=== PATIENT | male | born 1990 | race Caucasian/White ===

== ENCOUNTER 2017-06-01 00:30 | Emergency (ER) | payer MEDICAID ==
[2017-06-01] MEDS ORDERED: SODIUM CHLORIDE 0.9% 1,000 ML IV ONE (00:40)
[2017-06-01] MEDS ORDERED: diphenhydrAMINE INJ 50 MG/ML VIAL IVP STA (00:40)
[2017-06-01] MEDS ORDERED: KETOROLAC 60 MG/2 ML VIAL IVP STA (00:40)
[2017-06-01] MEDS ORDERED: METOCLOPRAMIDE 10 MG/2 ML VIAL IVP STA (00:40)
--- NOTE | 2017-06-01 00:43 | ED Physician Documentation ---
PD HPI HEADACHE - Stated complaint Stated Complaint: HEADACHE - Chief complaint Chief Complaint: Neuro - History obtained from History obtained from: Patient - History of Present Illness Timing - onset: How many days ago (4) Timing - onset during: Rest Timing - details: Gradual onset, Intermittant Location: Left Quality: Aching Associated symptoms: Eye pain. No: Fever, Stiff neck, Nausea, Vomiting Improved by: Rest, Dark room Worsened by: Light Similar symptoms before: Work up / diagnostics Recently seen: Not recently seen - Additional information Additional information: Patient is a 27 year old male with a history of migraines who is presenting to the emergency department for headache. Patient states that he has had intermittent headaches for the last 4 days. Patient states they are just on his left side behind his eye. Patient reports that he has a history of migraines but has not had them in a few years. Patient does report that there is at home and he has not been sleeping well. Review of Systems Constitutional: denies: Fever, Chills Eyes: reports: Photophobia. denies: Decreased vision Ears: denies: Ear pain, Drainage/discharge Nose: denies: Congestion Throat: denies: Dental pain / toothache, Sore throat Cardiac: denies: Chest pain / pressure, Palpitations Respiratory: denies: Dyspnea, Cough, Wheezing GI: denies: Abdominal Pain, Nausea, Vomiting : reports: Reviewed and negative Skin: denies: Rash, Lesions Musculoskeletal: denies: Neck pain, Back pain, Extremity pain Neurologic: reports: Headache. denies: Generalized weakness, Focal weakness, Head injury, LOC Immunocompromised: denies: Immunocompromised PD PAST MEDICAL HISTORY - Present Medications Home Medications: Ambulatory Orders Medication Instructions Recorded Confirmed Butalb/Acetaminophen/Caffeine 1 each PO TID #10 capsule 06/01/17 [Fioricet 50-300-40 mg Capsule] - Allergies Allergies/Adverse Reactions: Allergies Allergy/AdvReac Type Severity Reaction Status Date / Time No Known Drug Allergies Allergy Verified 06/01/17 00:40 PD ED PE NORMAL - Vitals Vital signs reviewed: Yes - General General: Alert and oriented X 3, No acute distress, Well developed/nourished - HEENT HEENT: Atraumatic, PERRL, Moist mucous membranes, Pharynx benign - Neck Neck: Supple, no meningeal sign, No JVD - Cardiac Cardiac: RRR, No murmur - Respiratory Respiratory: No respiratory distress - Abdomen Abdomen: Soft, Non tender, Non distended - Derm Derm: Normal color, Warm and dry, No rash - Extremities Extremities: No deformity, Normal ROM s pain, No calf tenderness / cord - Neuro Neuro: Alert and oriented X 3, signaler 2-12 intact, No motor deficit, No sensory deficit, Normal speech Eye Opening: Spontaneous Motor: Obeys Commands Verbal: Oriented GCS Score: 15 Results - Vitals Vitals: Vital Signs - 24 hr 06/01/17 00:35 Temperature 36.5 C Heart Rate 67 Respiratory 16 Rate Blood Pressure 154/110 H O2 Saturation 98 Oxygen O2 Source Room air Oxygen Flow Rate 2 PD MEDICAL DECISION MAKING - ED course Complexity details: reviewed old records, reviewed results, re-evaluated patient , considered differential, d/w patient ED course: Patient was seen and examined at bedside. Patietn was Patient was seen and examined at bedside. patient was well appearing with no focal deficits. Patient was treated with iv fluids, toradol, reglan, bendadryl and supplemental O2. Patient was able to rest comfortably. patient's original blood pressure was an outlier as all the other were within normal limits. While serious etiology of the patient's headache were considered they were unlikely. Patient required no further inpatient work up and was stable for discharge with outpatient follow up. Departure - Departure Disposition: 01 Home, Self Care Clinical Impression: Migraine Condition: Poor Instructions: ED Headache Migraine Follow-Up: primary,care provider [Other] Prescriptions: Butalb/Acetaminophen/Caffeine [Fioricet 50-300-40 mg Capsule] 1 each PO TID #10 capsule Comments: Your symptoms today are likely a migraine or cluster headache. Symptoms could be brought on by not sleeping. it is important to get plenty of sleep and stay well hydrated. it is also important to decrease your amount of screentime. You should follow up with your doctor if your symptoms become more frequent or have a longer duration. You may return to the emergency department at any time for new, worsening or uncontrollable symptoms. Forms: Activity restrictions
[2017-06-01 02:13] VITALS: BP 122/69
== END 2017-06-01 02:13 | disposition home or self-care (01) ==
LOC: ED 00:30
DX: G43.909 Migraine, unspecified, not intractable, without status migrainosus (principal)
CPT/HCPCS: 96361; 96374; 96375; 99284

== ENCOUNTER 2021-09-16 20:39 | Outpatient (CLI) | payer BC ==
--- NOTE | 2021-09-17 17:19 | Ultrasound Report ---
PROCEDURE: Testicle INDICATIONS: SCROTAL MASS TECHNIQUE: Real-time scanning was performed of the scrotum and testicles, with image documentation. Color and p ulse Doppler interrogation was performed of both testicles. COMPARISON: None. FINDINGS: Right: Testicle is normal in size at 4.4 x 2.5 x 2.6 cm, and homogenous in echotexture. Epididymis is normal in overall size and morphology. No hydrocele or varicoceles. Overlying scrotal skin is no rmal in thickness. Left: Testicle is normal in size at 4.1 x 2.2 x 2.7 cm, and homogeneous in echotexture. 2 tiny echog enic foci are noted in left testicular parenchyma and may represent microcalcifications. Epididymis i s normal in overall size and morphology. Trace left-sided hydrocele is noted. Significant left-sided varicoceles are seen measures up to 4.6 mm in diameter.. Overlying scrotal skin is normal in thickne ss. Doppler: Color and pulse Doppler demonstrate normal and symmetric arterial flow in both testicles. IMPRESSION: 1. No discrete scrotal mass is seen. No discrete testicular mass. 2 tiny calcification seen in left t esticular parenchyma. No evidence of testicular torsion. 2. Trace left-sided hydrocele. 3. Significant left-sided varicoceles as above. Reviewed by: Figueroa Coe MD on 09/17/2021 5:18 PM PDT Approved by: Figueroa Coe MD on 09/17/2021 5:18 PM PDT Station ID: [id number]
== END 2021-09-16 20:40 | disposition home or self-care (01) ==
LOC: DI 20:39
PROVIDERS: ATTEND Internal Medicine
DX: N50.89 Other specified disorders of the male genital organs (principal); I86.1 Scrotal varices

== ENCOUNTER 2022-08-20 07:00 | Outpatient (CLI) | payer BC ==
--- NOTE | 2022-08-20 16:49 | XRAY Report ---
PROCEDURE: Thoracic Spine 2 View INDICATIONS: THORACIC BACK PAIN TECHNIQUE: 3 views of the thoracic spine were acquired. COMPARISON: None. FINDINGS: Bones: No fractures or dislocations. No suspicious bony lesions. Visualized ribs are intact. Multil evel disc space narrowing and endplate osteophyte formation. Soft tissues: No paravertebral stripe thickening. IMPRESSION: Multilevel degenerative disc disease. No acute fracture. No osseous lesion. If symptoms and/or clinic al suspicion for pathology continue, further assessment with repeat plain films, or advanced imaging (e.g., CT, MRI, or bone scan) is recommended for further assessment. Reviewed by: Bonita Hudson MD on 08/20/2022 4:48 PM PDT Approved by: Bonita Hudson MD on 08/20/2022 4:48 PM PDT Station ID: [id number]
== END 2022-08-20 23:59 | disposition home or self-care (01) ==
LOC: DI.S 07:00
PROVIDERS: ATTEND Physician Assistant
DX: M51.34 Other intervertebral disc degeneration, thoracic region (principal)